=== PATIENT | male | born 1975 | race Caucasian/White ===

== ENCOUNTER 2021-02-18 13:12 | Outpatient (CLI) | payer OTHER, SELFPAY ==
--- NOTE | ~2021-02-18 | US_ITS ---
EXAMINATION: US art doppler w press LE BI DATE: 02/18/2021 14:43 INDICATION: Post procedural states with bilateral lower limb swelling and edema. TECHNIQUE: Segmental pressures and plethysmographic and Doppler waveforms of the brachial and lower e xtremity arteries were obtained. COMPARISON: None. FINDINGS: Right and left brachial artery pressures of 124 mm Hg and 129 mm Hg, respectively, are concordant (no rmal difference <= 30 mmHg). The right and left high-thigh pressure indices are 1.22 and 1.33, respec tively (normal > 1.2). The right ankle-brachial index (DAVID) is 1.21 (normal >= 0.9-1). The right great toe-brachial index (T BI) is 0.82 (normal >= 0.6-0.8). The right lower extremity segmental pressure gradients are normal (n ormal gradients <= 20-30 mmHg between adjacent levels on the same leg or the same levels on the two l egs). Arterial waveforms are triphasic with brisk systolic upstrokes throughout the arteries of the r ight lower limb. The left DAVID is 1.12. The left TBI is 1.29. The left lower extremity segmental pressure gradients are mildly increased between the left above and [id number] popliteal artery. Arterial waveforms are triphasic with brisk systolic upstrokes throughout the arteries of the left lower limb. IMPRESSION: 1. Normal DAVID's and TBI's bilaterally. No significant arterial occlusive disease. Reviewed, dictated and finalized at location B[facility] IMPRESSION: 1. Normal DAVID's and TBI's bilaterally. No significant arterial occlusive diseas e.
--- NOTE | ~2021-02-18 | US_ITS ---
EXAMINATION: US venous doppler [facility] DATE: 02/18/2021 14:43 INDICATION: Right lower limb swelling. Other postprocedural states. TECHNIQUE: Grayscale ultrasound images without and with compression and Doppler ultrasound images of the bilateral lower extremity veins were obtained. COMPARISON: None. FINDINGS: The visualized portions of right common femoral vein, profunda (deep) femoral vein, femoral vein, pop liteal vein, peroneal veins, posterior tibial veins, and greater saphenous vein outflow are patent. The visualized portions of left common femoral vein, profunda femoral vein, femoral vein, popliteal v ein, peroneal veins, posterior tibial veins, and greater saphenous vein outflow are patent. IMPRESSION: 1. No deep venous thrombosis. Reviewed, dictated and finalized at location A. [facility]ENT[facility] [employer]
== END 2021-02-18 13:13 | disposition home or self-care (01) ==
DX: Z98.890 Other specified postprocedural states (principal)
CPT/HCPCS: 93923; 93970

== ENCOUNTER 2022-06-24 02:01 | Day surgery (SDC) | payer OTHER, SELFPAY ==
[2022-06-16 10:53] VITALS: BMI 33.9
--- NOTE | 2022-06-24 10:03 | WPDANESEPPF ---
Anes - Initial Pre Proc Eval Procedure: Operation Date: 06/24/22 11:30 Proposed Procedures p Screening Colonoscopy - Huber Norwood MD Date/Time: 06/24/22 10:03 Surgeon: Huber Norwood MD Pre Op Diagnosis: neoplasm screening Patient Data Age: 46 Gender: M Height: 1.91 m Weight: 123 kg Allergies Allergy/AdvReac Type Severity Reaction Status Date / Time No Known Allergies Allergy Verified 06/24/22 10:17 Home Medications Medication Instructions Recorded Confirmed Type Adderall XR 20 mg PO DAILY 06/16/22 06/24/22 History Vitamin D3 10,000 units PO DAILY 06/16/22 06/24/22 History Patient hx anesthesia problems: none Family hx anesthesia problems: none Results Review: All pre-operative results and documents have been reviewed as part of the pre-operative evaluation. [facility] Past Medical History Medical History (Updated 06/24/22 @ 10:04 by Sahil Dang MD) Obesity Social History Social History Smoking status: Never smoker Alcohol intake: never Substance use: never Substance use type: does not use Living arrangements: with family Spiritual care concerns: No Anes - Eval Final PreProcedure Day of Procedure 06/24/22 10:03 Patient weight: obese Heart: regular rate and rhythm Lungs: clear to auscultation and normal air movement Airway: Mallampati scale class II Neurological: alert and oriented Last oral intake: >/= 8 hours ASA classification: III Emergent: no Anesthetic plan: proceed Anesthesia type and monitoring: general GIVS Results Review: All pre-operative results and documents have been reviewed as part of the pre-operative evaluation. Informed Consent: The patient's anesthetic plan and its attendant risks and benefits were discussed with the patient/family/POA. Questions were solicited and answers provided to the satisfaction of the patient/family/POA.
[2022-06-24 10:19] VITALS: BP 140/89; PULSE 87; RESP 16; TEMP 36.4; O2SAT 98; BMI 34.2
[2022-06-24] MEDS: LACTATED RINGERS 1,000 ML 150 ML IV CONT (10:27)
--- NOTE | 2022-06-24 10:49 | PM.HPGS ---
History of Present Illness History of Present Illness Consent: Risks, benefits, and alternatives have been discussed and questions answered. Patient agrees to proceed with procedure. Chief complaint: neoplasm screening Narrative: Negro Miller is a 46 year old male here for first screening colonoscopy Review of Systems Constitutional: Constitutional: Denies headache(s) and Denies weakness Eyes: Eyes: Denies blurry vision ENT: Reports Normal hearing present, Denies headache(s) and Denies neck pain Cardiovascular: Cardiovascular: Denies chest pain and Denies dyspnea Respiratory: Respiratory: Denies dyspnea Gastrointestinal: Gastrointestinal: Reports no additional gastrointestinal complaints Genitourinary: Genitourinary: Denies dysuria Musculoskeletal: Musculoskeletal: Denies neck pain Integumentary/Breasts: Skin/Breast: Denies dry skin Neurologic: Reports Normal hearing present, Denies headache(s) and Denies weakness Psychiatric: Psychiatric: Denies anxiety Endocrine: Endocrine: Denies change in body appearance Hematologic/Lymphatic: Hematologic/Lymphatic: Denies easy bleeding Allergic/Immunologic: Allergic/Immunologic: Denies urticaria PMFSH Past Medical History Medical History (Updated 06/24/22 @ 10:50 by Huber Norwood MD) Colon cancer screening Obesity Social History Social History Smoking status: Never smoker Alcohol intake: never Substance use: never Substance use type: does not use Living arrangements: with family Spiritual care concerns: No Meds Home Medications and Allergies Home Medications Medication Instructions Recorded Confirmed Type Adderall XR 20 mg PO DAILY 06/16/22 06/24/22 History Vitamin D3 10,000 units PO DAILY 06/16/22 06/24/22 History Allergies Allergy/AdvReac Type Severity Reaction Status Date / Time No Known Allergies Allergy Verified 06/24/22 10:17 Vital Signs Vital Signs - 24 hr 06/24/22 10:19 Temperature 97.6 F Pulse Rate 87 Respiratory Rate 16 Blood Pressure 140/89 Pulse Oximetry 98 Oxygen Delivery Room Air Exam Const: General: comfortable and no acute distress HENMT: Face/Nose/Sinus: Normal nares present Eyes: General: appearance normal, both eyes and all related structures Neck: Neck: no JVD Resp: Auscultation: clear to auscultation bilaterally Cardio: Rate: regular rate Rhythm: regular rhythm GI: Inspection: non-distended GI Palp: Yes Soft to palpation Skin: General skin exam: normal color Neuro: General: gait normal Speech: normal speech Extrem: General: normal to inspection Psych: Mental Status: mental status grossly normal Assessment and Plan Assessment and plan (1) Colon cancer screening: Code(s): Z12.11 - Encounter for screening for malignant neoplasm of colon Status: Acute Assessment and Plan: colonoscopy
[2022-06-24 11:11] VITALS: BP 123/84; PULSE 85; RESP 20; O2SAT 94
[2022-06-24 11:21] VITALS: BP 131/79; PULSE 85; RESP 22; O2SAT 95
[2022-06-24 11:31] VITALS: BP 126/86; PULSE 72; RESP 18; O2SAT 97
== END 2022-06-24 11:41 | disposition home or self-care (01) ==
PROVIDERS: PCP Student in an Organized Health Care Education/Training Program; Visit Provider Internal Medicine Gastroenterology
PROC: 0DJD8ZZ Inspection of Lower Intestinal Tract, Via Natural or Artificial Opening Endoscopic (ICD-10-PCS; CPT 45378; principal; 2022-06-24 11:30)
DX: Z12.11 Encounter for screening for malignant neoplasm of colon (principal); D12.0 Benign neoplasm of cecum; D12.4 Benign neoplasm of descending colon; K57.30 Diverticulosis of large intestine without perforation or abscess without bleeding; K64.8 Other hemorrhoids; E66.9 Obesity, unspecified; Z68.34 Body mass index [BMI] 34.0-34.9, adult
CPT/HCPCS: 45385; 88305; J2704; J7120

== ENCOUNTER → 2022-08-23 14:45 | Outpatient (CLI) | payer OTHER, SELFPAY ==
--- NOTE | ~2022-08-23 | XR_ITS ---
XR knee RT min 4V DATE: 08/23/2022 16:37 INDICATION: Instability TECHNIQUE: [place] and standing AP, PA and lateral views COMPARISON: None FINDINGS: A radiopaque fixation devices of the distal femur and proximal tibia consistent with prior cruciate ligament repair. No fracture or dislocation or joint effusion, radiopaque intra-articular loose body or chondrocalcino sis is noted. Joint spaces are relatively preserved. Small probable osteochondroma of the proximal medial fibular shaft. IMPRESSION: Status post cruciate ligament repair Reviewed, dictated and finalized at location A.
--- NOTE | ~2022-08-23 | XR_ITS ---
XR hip BI 2V w AP pelvis DATE: 08/23/2022 16:36 INDICATION: Instability TECHNIQUE: AP pelvis. AP and lateral views of each hip. COMPARISON: None FINDINGS: No fracture or dislocation, avascular necrosis or bone destruction of either hip. Hip joint spaces are symmetric and relatively well preserved. The pubic symphysis and sacroiliac joints are intact. No pelvic fracture or bone destruction is detec oleg. IMPRESSION: No significant abnormality Reviewed, dictated and finalized at location A. IMPRESSION: No significant abnormality
--- NOTE | ~2022-08-23 | MR_ITS ---
EXAMINATION: MR knee RT wo con DATE: 08/23/2022 15:37 INDICATION: Right knee instability TECHNIQUE: Magnetic resonance imaging (MRI) of the right knee was performed without intravenous contr ast. Sequences included coronal PD-weighted FSE, coronal PD-weighted FS FSE, sagittal T2-weighted FS E, sagittal PD-weighted FS FSE, axial PD weighted fat saturated FSE and axial, sagittal and coronal f luid sensitive FSE STIR. COMPARISON: None. FINDINGS: Medial compartment: The posterior horn of the medial meniscus is small consistent with prior partial meniscectomy. There is linear increased signal extending to contact the caudal articular surface at the peripheral third of the posterior horn of the medial meniscus consistent with meniscal tear which could be either resi dual, recurrent or previously repaired. Correlate with details of prior surgical history. Mild increa sed signal on the innermost free edge at the junction of the body and posterior horn consistent with fraying versus additional very small vertical tear. Articular cartilage is normal. Lateral compartment: Lateral meniscus is normal. Small region of shallow chondral fissuring at the central aspect of the j unction the anterior to central weightbearing lateral femoral condyle along the posterior margin of t he lateral tibial plateau. Patellofemoral compartment: Partial-thickness chondral fissuring which appears to involve greater than 50% the cartilage thicknes s at the central aspect of the lateral patellar facet. Trochlear cartilage is normal. Ligaments and tendons: Posterior cruciate ligament is normal. There is been prior anterior cruciate ligament reconstruction with failure of the graft. The gracilis tendon is not visualized suggesting this is been previously h arvested for a gracilis tendon autograft. The medial collateral ligament and fibular collateral ligam ent complex are normal. Mild distal quadriceps tendinopathy without tear. The patellar tendon is norm al. The remainder of the visualized medial and lateral hamstring tendons as well as the iliotibial ba nd are normal. Fluid: Physiologic amount of fluid in the joint space. No loose osteochondral bodies identified. Osseous/other: There are a couple small low signal intensity bone islands at the medial and lateral femoral condyles . No fracture or pathologic marrow replacing process. IMPRESSION: 1. Anterior cruciate ligament reconstruction with failure of the likely gracilis tendon autograft. 2. Status post partial medial meniscectomy with very small likely vertical tear at the inner free edg e at the junction of the body and posterior horn and additional longitudinal tear plane of less than fluid intensity extending to the inferior articular surface at the peripheral third which could repre sent either a residual or recurrent tear or a repaired tear in the appropriate clinical setting. Abdullahi elate with details of the prior surgery. If indeterminate on this would affect clinical management co uld consider MR arthrography to differentiate recurrent or residual tear from a repaired tear. 3. Mild tricompartmental osteoarthritis with regions of moderate grade chondromalacia in all 3 compar tments. Reviewed, dictated and finalized at location A. IMPRESSION: 1. Anterior cruciate ligament reconstruction with failure of the likely gracili s tendon autograft. 2. Status post partial medial meniscectomy with very small likely vertical tear at the inner free edge at the junction of the body and posterior horn and rose marie tional longitudinal tear plane of less than fluid intensity extending to the in ferior articular surface at the peripheral third which could represent either a residual or recurrent tear or a repaired tear in the appropriate clinical sett ing. Correlate with detail
--- NOTE | ~2022-08-23 | XR_ITS ---
XR knee LT min 4V DATE: 08/23/2022 16:37 INDICATION: Instability TECHNIQUE: [place] and standing AP, PA and lateral views COMPARISON: None FINDINGS: No fracture or dislocation or joint effusion. There is slight periarticular spurring of the patella. No radiopaque intra-articular loose body or chondrocalcinosis. No periosteal reaction or angelo ne destruction. IMPRESSION: Slight patellofemoral osteoarthritis Reviewed, dictated and finalized at location A.
== END ==
PROVIDERS: PCP Student in an Organized Health Care Education/Training Program; Visit Provider Physical Medicine & Rehabilitation Pain Medicine
DX: M25.352 Other instability, left hip (principal); M25.351 Other instability, right hip; M17.0 Bilateral primary osteoarthritis of knee
CPT/HCPCS: 73521; 73564; 73721